=== PATIENT | female | born 1955 | race Caucasian/White ===

== ENCOUNTER 2018-09-13 10:27 | Emergency (ER) | payer MEDICAID ==
[~2018-09-13] VITALS: Ht 157.5 cm; Wt 68.2 kg
[2018-09-13 10:44] LABS: GLUCOSE,POINT OF CARE 114 MG/DL (70-110)
[2018-09-13] MEDS ORDERED: ATOR80TA PO (10:46)
[2018-09-13] MEDS ORDERED: GLIP5 PO (10:46)
[2018-09-13] MEDS ORDERED: CLOP75TA3 PO (10:46)
[2018-09-13] MEDS ORDERED: INSU100I26 SQ (10:46)
[2018-09-13] MEDS ORDERED: PHENAZOPYRIDINE HCL 100 MG TABLET PO ONE (13:00)
[2018-09-13 13:07] VITALS: BP 148/76
[2018-09-13 13:30] LABS: APPEARANCE,URINE TURBID (CLEAR); BILIRUBIN,URINE NEGATIVE (NEGATIVE); GLUCOSE, URINE (UA) NEGATIVE (NEGATIVE); KETONES,URINE NEGATIVE (NEGATIVE); LEUKOCYTE ESTERASE ,URINE LARGE (NEGATIVE); NITRATE,URINE NEGATIVE (NEGATIVE); OCCULT BLOOD,URINE LARGE (NEGATIVE); PH,URINE 6.5 (5.0-8.0); PROTEIN,URINE SEE CONFIRM (NEGATIVE)
[2018-09-13 13:39] LABS: SULFOSALICYLIC ACID,URINE 3+ (Negative)
[2018-09-13 13:40] LABS: BACTERIA,URINE Moderate /HPF (None Seen); RBC,URINE 51-100 /HPF (0-2); WBC,URINE 51-100 /HPF (0-5)
== END 2018-09-13 13:14 | disposition home or self-care (01) ==
LOC: EMS 10:30
DX: R30.0 Dysuria (principal); I10 Essential (primary) hypertension; E78.00 Pure hypercholesterolemia, unspecified; Z79.899 Other long term (current) drug therapy; Z79.01 Long term (current) use of anticoagulants; Z79.84 Long term (current) use of oral hypoglycemic drugs; Z92.21 Personal history of antineoplastic chemotherapy
CPT/HCPCS: 87086